=== PATIENT | female | born 1960 | race Caucasian/White ===

== ENCOUNTER 2024-06-20 15:57 | Emergency (ER) | payer OTHER ==
[2024-06-20 17:05] VITALS: BP 143/45; PULSE 51; RESP 16; TEMP 98; BMI 18.8
[2024-06-20 19:10] LABS: EOS % 0.9 % (0-4.5); HEMATOCRIT 37.4 % (32.4-45.2); HEMOGLOBIN 12.4 GM/dL (10.7-15.3); LYMPH % 33.2 % (8-40); MCH 27.8 pg (25.7-33.7); MEAN CELL VOLUME 84.1 fl (80-96); MEAN PLT VOLUME 8.2 fl (7.5-11.1); MONO % 8.7 % (3.8-10.2); NEUT % 56.2 % (42.8-82.8); PLATELET COUNT 215 10^3/uL (134-434); RBC 4.45 M/mm3 (3.60-5.2); RDW 13.7 % (11.6-15.6); WHITE BLOOD COUNT 3.3 K/mm3 (4.0-10.0)
[2024-06-20 19:18] LABS: INR 1.06 (0.83-1.09); PROTHROMBIN TIME (PATIENT) 11.5 SEC (9.7-13.0)
[2024-06-20 19:20] LABS: ACTIVATED PTT 29.9 SECONDS (25.2-36.5)
[2024-06-20 19:28] LABS: URINE APPEARANCE CLEAR; URINE BILIRUBIN NEGATIVE (NEGATIVE); URINE COLOR YELLOW; URINE GLUCOSE (UA) NEGATIVE (NEGATIVE); URINE KETONE NEGATIVE (NEGATIVE); URINE LEUK ESTERASE NEGATIVE (NEGATIVE); URINE NITRITE NEGATIVE (NEGATIVE); URINE PROTEIN NEGATIVE (NEGATIVE); URINE UROBILINOGEN 0.2 mg/dL (0.2-1.0)
[2024-06-20 19:32] LABS: CHLORIDE 106 mmol/L (98-107); SODIUM 137 mmol/L (136-145)
[2024-06-20 19:34] LABS: CALCIUM 8.8 mg/dL (8.5-10.1)
[2024-06-20 19:35] LABS: ALBUMIN 3.4 g/dl (3.4-5.0); BLOOD UREA NITROGEN 7.7 mg/dL (7-18); CO2 29 mmol/L (21-32); GLUCOSE,RANDOM 81 mg/dL (74-106); MAGNESIUM 2.2 mg/dL (1.8-2.4)
[2024-06-20 19:38] LABS: CREATININE 0.5 mg/dL (0.55-1.3); PHOSPHOROUS 3.9 mg/dL (2.5-4.9); SGOT/AST 50 U/L (15-37); SGPT/ALT 20 U/L (13-61)
[2024-06-20 19:39] LABS: ANION GAP 3 mmol/L (4-13); POTASSIUM 6.3 mmol/L (3.5-5.1)
[2024-06-20 19:40] LABS: ALK PHOS 80 U/L (45-117); BILIRUBIN,TOTAL 0.6 mg/dL (0.2-1); TOT PROT 6.9 g/dl (6.4-8.2)
[2024-06-20] MEDS: SODIUM CHLORIDE 0.9% 500 ML INFUS.BAG IV ONE (19:58)
[2024-06-20 20:45] LABS: POTASSIUM 3.7 mmol/L (3.5-5.1)
[2024-06-20 20:47] LABS: CALCIUM 8.6 mg/dL (8.5-10.1)
[2024-06-20 20:48] LABS: BLOOD UREA NITROGEN 6.7 mg/dL (7-18)
[2024-06-20 20:51] LABS: CREATININE 0.5 mg/dL (0.55-1.3)
[2024-06-20 21:17] LABS: HIV INTERPRETATION NEGATIVE (NEGATIVE)
== END 2024-06-20 21:54 | disposition home or self-care (01) ==
LOC: JER 15:57
DX: R42 Dizziness and giddiness (principal); R00.1 Bradycardia, unspecified
CPT/HCPCS: 36415; 71045-TC-FY; 80048; 80053; 81003; 83735; 84100; 84484; 85025; 85610; 85730; 86803; 87086; 87389; 93005; 93010; 99285-25